=== PATIENT | male | born 1960 | race Asian ===

== ENCOUNTER 2025-05-05 11:53 | Emergency (ER) | payer SELFPAY ==
[~2025-05-05] VITALS: Ht 170.2 cm; Wt 70.0 kg
[2025-05-05 11:56] VITALS: O2SAT 86
[2025-05-05 12:41] LABS: BASOPHILS % 0.7 % (0.0-2.0); EOSINOPHILS % 2.5 % (0.0-5.0); HEMATOCRIT. 40.5 % (42.0-52.0); HEMOGLOBIN. 13.9 g/dL (14.0-18.0); LYMPHOCYTES % 38.1 % (20.0-50.0); MEAN PLATELET VOLUME 7.0 fl (7.4-10.4); MONOCYTES % 5.2 % (2.0-8.0); NEUTROPHILS % 53.5 % (40.0-76.0); PLATELET 213 x1000/uL (130-400); RED BLOOD CELL COUNT 4.68 mill/uL (4.7-6.1); RED CELL DISTRIBUTION WIDTH 13.3 % (11.6-14.6)
[2025-05-05] MEDS: TENECTEPLASE 50MG/VIAL IV NR (12:53)
[2025-05-05 12:54] LABS: CREATININE 0.9 mg/dL (0.6-1.3)
[2025-05-05 12:55] LABS: ETHANOL BLOOD < 10 mg/dL (<10); TROPONIN I HIGH SENSITIVITY < 4 ng/L (3.0-53); UREA NITROGEN BLOOD 14 mg/dL (9-23)
[2025-05-05 12:56] LABS: ASPARTATE AMINOTRANSFERASE 18 IU/L (<34)
[2025-05-05 12:57] LABS: BILIRUBIN DIRECT 0.2 mg/dL (<=3.0); BILIRUBIN TOTAL 0.6 mg/dL (0.1-1.0); PROTEIN TOTAL 6.2 g/dL (6.0-8.3)
[2025-05-05 13:07] LABS: INR 1.0
[2025-05-05] MEDS ORDERED: *TENECTEPLASE FOR AIS XX SCH (13:30)
[2025-05-05 13:40] VITALS: BP 115/99; PULSE 57; RESP 18; TEMP 36.6; O2SAT 100
== END 2025-05-05 14:00 | disposition short-term general hospital (02) ==
LOC: ER 12:07 → CMPBEDREQ 13:35 → ER 14:00
DX: I77.71 Dissection of carotid artery (principal); E11.9 Type 2 diabetes mellitus without complications; E78.00 Pure hypercholesterolemia, unspecified
CPT/HCPCS: 80076; 80048; 80320; 85025; 85610; 85730; 84484; 36415; 71045; 70496; 70498; 70450; 93005; 96374; 99291; Q9967; J3101; G0480